=== PATIENT | male | born 1995 | race Caucasian/White ===

== ENCOUNTER 2017-08-31 10:36 | Emergency (ER) | payer OTHER ==
[~2017-08-31] VITALS: Ht 167.6 cm; Wt 63.5 kg
[~2017-08-31 10:36] MED LIST: HUMALOG100 UNIT/1; LANTUS
[2017-08-31] MEDS ORDERED: IBUPROFEN 600600 M1 PO (11:24)
[2017-08-31 11:34] VITALS: BP 106/71
== END 2017-08-31 11:35 | disposition home or self-care (01) ==
LOC: M.ERS 10:36
DX: S93.402A Sprain of unspecified ligament of left ankle, initial encounter (principal); E10.9 Type 1 diabetes mellitus without complications; X58.XXXA Exposure to other specified factors, initial encounter; Y93.89 Activity, other specified; Y92.89 Other specified places as the place of occurrence of the external cause; Y99.8 Other external cause status

== ENCOUNTER 2021-06-26 10:45 | Emergency (ER) | payer OTHER ==
[~2021-06-26] VITALS: Ht 167.6 cm; Wt 65.8 kg
[~2021-06-26 10:45] MED LIST changes: +IBUPROFEN 600600 M1 PO
[2021-06-26 13:55] VITALS: BP 132/87
== END 2021-06-26 13:56 | disposition home or self-care (01) ==
LOC: M.ERS 10:45
DX: S01.01XA Laceration without foreign body of scalp, initial encounter (principal); E10.9 Type 1 diabetes mellitus without complications; Z79.899 Other long term (current) drug therapy; W10.8XXA Fall (on) (from) other stairs and steps, initial encounter; Y93.89 Activity, other specified; Y92.89 Other specified places as the place of occurrence of the external cause; Y99.8 Other external cause status